=== PATIENT | female | born 1975 | race Caucasian/White ===

== ENCOUNTER 2020-04-23 00:48 | Emergency (ER) | payer OTHER, SELFPAY ==
--- NOTE | 2020-04-23 00:59 | XR_ITS ---
WS: [id number] LEFT TIBIA-FIBULA 2 VIEWS HISTORY: fall/trauma COMPARISON: None available. No fracture, dislocation or joint abnormality. XR/XR tibia fibula LT 2V 11067 IMPRESSION: Normal LEFT tibia-fibula.
--- NOTE | 2020-04-23 00:59 | XR_ITS ---
WS: [id number] RIGHT TIBIA-FIBULA 2 VIEWS HISTORY: fall trauma COMPARISON: None available. No fracture, dislocation or joint abnormality. XR/XR tibia fibula RT 2V [id number] IMPRESSION: Normal RIGHT tibia-fibula.
--- NOTE | 2020-04-23 01:00 | ED_ITS ---
HPI - Extremity Injury (Lower) General: Chief Complaint: Extremity Injury, Lower Stated Complaint: injury to both legs Time Seen by Provider: 04/23/20 00:49 Source: patient Mode of arrival: wheelchair Limitations: no limitations History of Present Illness: HPI Narrative: 44-year-old female patient presents to the emergency department with bilateral lower extremity pain. 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 She reports pain with ambulation, reports more pain pronounced in the right than on the left. Both are painful to the touch. She reports difficulty walking secondary to pain. MD complaint: leg injury Onset (ago): minute(s) (30) Type of Injury: blunt Place: work Severity: moderate Severity scale (1-10): 6 Relieving factors: nothing Exacerbating factors: weight bearing Context: direct blow Associated symptoms: Reports inability to bear weight Other symptoms: none Treatments prior to arrival: cold therapy Review of Systems General: Reports: 10 or more systems reviewed and unremarkable except in HPI and below Const: Denies: fever(s), chills or diaphoresis Eyes: Denies: blurry vision or eye redness ENMT: Denies: throat pain, dental pain or disequilibrium Card: Denies: chest pain, palpitations or irregular heart rhythm Resp: Denies: dyspnea, productive cough, non-productive cough or wheezing GI: Denies: abdominal pain, nausea or vomiting : Denies: difficulty voiding or dysuria Musc: Reports: extremity pain (BLE ) and joint pain (rt ankle/knee); Denies: neck pain or back pain Skin/Breast: Reports: skin tenderness and changes in skin color; Denies: rash or pruritus Neuro: Denies: headache(s), weakness in extremities or behavioral changes Psych: Denies: anxiety or depression Hiro/Lymph: Denies: easy bruising Physical Exam Const: COMMON NORMALS: no acute distress, patient oriented x3, healthy appearing and alert GENERAL APPEARANCE: cooperative, comfortable and well hydrated HENMT: COMMON NORMALS: normocephalic, Normal external nose present and moist oral mucous membranes HEAD & SCALP: normocephalic NOSE: Normal external nose present Eye: COMMON NORMALS: Equal, round and reactive pupils present and EOMs intact bilaterally GENERAL EYE: appearance normal, both eyes and all related structures PUPIL: Yes Equal, round and reactive pupils present Neck/C-Spine: COMMON NORMALS: full ROM and no lymphadenopathy GENERAL: Yes normal visual inspection and Yes trachea midline CERVICAL SPINE: Yes cervical ROM normal, No pain with cervical ROM, No Cervical spine tenderness and No Paracervical muscle tenderness Lymph: LYMPHATIC: no lymphadenopathy noted Chest: COMMONS NORMALS: normal inspection of the chest and normal palpation of entire chest wall Resp: COMMON NORMALS: normal respiratory effort and clear to auscultation bilaterally EFFORT & INSPECTION: Yes able to speak in complete sentences AUSCULTATION: clear to auscultation bilaterally Cardio: COMMON NORMALS: regular rhythm, S1 normal heart sound present, S2 normal heart sound present and Peripheral pulses 2+ throughout RHYTHM: regular rhythm HEART SOUNDS: S1 normal heart sound present and S2 normal heart sound present PERIPHERAL PULSES: Peripheral pulses 2+ throughout GI: COMMON NORMALS: Normal to inspection, nondistended, normoactive bowel sounds present, Soft to palpation and non-tender INSPECTION: Yes normal to inspection PALPATION: Yes Soft to palpation : COMMON NORMALS: Yes no CVA tenderness BLADDER/KIDNEY EXAM: Yes no CVA tenderness and No CVA tenderness Back/Pelvis: COMMON NORMALS: no CVA tenderness, thoracic and lumbar spine no rmal to inspection, no thoracic nor lumbar tenderness and thoraco-lumbar ROM normal GENERAL BACK: No CVA tenderness Extremity: COMMON NORMALS: normal to inspection, full ROM and capillary refill normal GENERAL: Yes normal exam except as noted RIGHT LOWER EXTREMITY: Yes knee joint (anterior knee pain with palpation, limited ROM due to pain in lower leg), Yes lower leg (Superficial anterior abrasion, pain with palpation, small hematoma mid lowe) Right lower leg: Yes inspection (No bleeding, slight scaling of the skin.) and Yes neurovascular exam (distally intact) and Yes foot & digits Right ankle: Yes inspection (no discoloration), Yes palpation (no tenderness to the rt ankle), Yes ROM (limited d/t pain reproduced to the anterior tib/fib area), Yes neurovascular exam (distally intact) and Yes special tests Right ankle special tests: Ankle inversion test: Negative, Ankle eversion test: Negative, Ankle posterior drawer test: Negative, Ankle anterior drawer test: Negative and Squeeze test: Negative LEFT LOWER EXTREMITY: Yes lower leg (anterior hooks pain, pain to palpation) Left lower leg: Yes neurovascular exam (distally intact) Neuro: COMMON NORMALS: patient oriented x3 and no focal motor deficits SENS ORIUM/ORIENTATION: Yes alert Psych: COMMON NORMALS: mental status grossly normal, Normal thought process present and cooperative ACTIVITY/MOTOR BEHAVIOR: Yes appropriate eye contact THOUGHT PROCESS: Normal thought process present Skin: COMMON NORMALS: no rashes or lesions noted and turgor normal GENERAL SKIN EXAM: no rashes or lesions noted and turgor normal Course Vital Signs: Vital signs: Vital Signs Temperature 97.7 F 04/23/20 01:01 Pulse Rate 78 04/23/20 01:26 Respiratory Rate 18 04/23/20 01:26 Blood Pressure 108/89 04/23/20 01:26 Pulse Oximetry 98 04/23/20 01:26 MDM - Extremity Injury (Lower) Imaging Data^: Xray Ortho: My impression: Rt Tib/Fib series, no acute fracture appreciated Left tib/fib series, no acute fracture appreciated Radiology inturp pending Discharge Plan Discharge Patient Disposition: Home Clinical Impression: Contusion of left lower leg Qualifiers: Encounter type: initial encounter Qualified Code(s): S80.12XA - Contusion of left lower leg, initial encounter Hematoma of lower extremity Qualifiers: Encounter type: initial encounter Laterality: right Qualified Code(s): S80.11XA - Contusion of right lower leg, initial encounter Condition: Stable Prescriptions: New IBU 800 mg tablet 800 mg PO TID PRN (Reason: pain) Qty: 30 RF: 0 Discharge Orders: Discharge Order (Routine); Ordered 04/23/20 Ordered By: Luisa Link Discharge Diet: Usual diet Discharge Activity: Limit activity as instructed Patient Instructions: Crush Injury, Crutch Instructions (ED), Contusion in Adults (ED) Activity Restrictions/Additional Instructions: Return to the emergency department if you develop redness swelling to the calf of either leg. Apply cool compresses and keep the right leg elevated to help with swelling and pain Utilize crutches as needed for pain Limit weightbearing of the right lower extremity until pain has improved No work tomorrow Follow-up with [employer]/Workman's Compensation Monday (2 days) to ensure you are improving May apply Le wrap as compression may be beneficial for pain control May take Tylenol, 1 g 3 times daily as needed for pain Stand Alone Forms: Work/School Release Coding Level of Care Code ED Revenue Field Agent for Chg Fwd Exam Comprehensive
[2020-04-23 01:01] VITALS: BP 124/89; PULSE 81; RESP 16; TEMP 36.5; O2SAT 96; BMI 25.8
[2020-04-23] MEDS: ibuprofen 800 mg tablet PO (01:25)
[2020-04-23 01:26] VITALS: BP 108/89; PULSE 78; PULSE 83; RESP 18; O2SAT 98
[2020-04-23] MEDS: HYDROcodone-acetaminophen 5-325 mg Tablet 1 TAB PO (03:14)
[2020-04-23 03:16] VITALS: BP 127/89; PULSE 89; RESP 18; O2SAT 98
== END 2020-04-23 03:16 | disposition home or self-care (01) ==
PROVIDERS: Emergency Provider Nurse Practitioner Family
DX: S80.11XA Contusion of right lower leg, initial encounter (principal); S80.12XA Contusion of left lower leg, initial encounter; W03.XXXA Other fall on same level due to collision with another person, initial encounter
CPT/HCPCS: 12345; 73590; 99281; 99283; E0114